=== PATIENT | male | born 1970 | race Caucasian/White ===

== ENCOUNTER 2025-08-13 20:52 | Emergency (ER) | payer OTHER ==
[~2025-08-13] VITALS: Ht 175.3 cm; Wt 72.6 kg
[2025-08-13 20:53] VITALS: BP 155/86
[2025-08-13] MEDS ORDERED: diphenhydrAMINE 50 MG/1 ML VIAL ONE ×2 (21:32→21:35)
[2025-08-13] MEDS ORDERED: ZIPRASIDONE MESYLATE 20 MG VIAL IM ONE (21:33)
[2025-08-13] MEDS ORDERED: LORAZEPAM 2 MG/1 ML VIAL ONE (21:33)
[2025-08-13 21:40] LABS: *BILIRUBIN,URIN NEGATIVE (NEGATIVE); *CLARITY,URINE CLEAR (CLEAR); *COLOR,URINE YELLOW (YELLOW); *KETONES,URINE NEGATIVE (NEGATIVE); *PROTEIN,URINE 3+ (NEGATIVE); *UROBILINOGEN,URINE 1.0 E.U./dl (NORMAL); LEUKOCYTE ESTERASE ,URINE NEGATIVE (NEGATIVE); NITRITE, URINE NEGATIVE (NEGATIVE); UGLUCOSE NEGATIVE (NEGATIVE)
[2025-08-13] MEDS: diphenhydrAMINE 50 MG/1 ML VIAL IV ONE (21:50)
[2025-08-13] MEDS: ZIPRASIDONE MESYLATE 20 MG VIAL IM ONE (21:50)
[2025-08-13] MEDS: LORAZEPAM 2 MG/1 ML VIAL IV ONE (21:50)
[2025-08-13 21:52] LABS: *BLOOD, URINE TRACE (NEGATIVE)
[2025-08-13 21:54] LABS: SQUAMOUS EPITHELIAL CELL,UR FEW /HPF (NONE SEEN)
[2025-08-13 21:55] LABS: *AMPHETAMINE, URINE NEGATIVE (NEGATIVE); *BARBITURATE, URINE NEGATIVE (NEGATIVE); *BENZODIAZEPINE, URINE NEGATIVE (NEGATIVE); *CANNABINOID, URINE NEGATIVE (NEGATIVE); *COCCAINE, URINE NEGATIVE (NEGATIVE); *OPIATE, URINE NEGATIVE (NEGATIVE); *PHENCYCLIDINE SCREEN,URINE NEGATIVE (NEGATIVE); FENTANYL, URINE NEGATIVE (NEGATIVE)
[2025-08-13 22:46] LABS: WHITE BLOOD COUNT (AUTO) 4.0 K/uL (3.6-10.2)
[2025-08-13 22:50] LABS: CREATININE 1.7 mg/dL (0.6-1.3); SODIUM SERUM 142 mmol/L (136-145); UREA NITROGEN, BLOOD 27 mg/dL (7-18)
[2025-08-13 22:52] LABS: PLATELET COUNT (AUTO) 89 K/uL (152-348); RED BLOOD CELL COUNT(AUTO) 4.41 MIL/uL (4.06-5.63); RED CELL DISTRIBUTION WIDTH 15.4 % (12.1-16.2)
[2025-08-13 22:56] LABS: ETHANOL < 3 MG/DL (0-10)
[2025-08-13 23:04] LABS: ASPARTATE AMINOTRANSFERASE 11 U/L (15-37); TOTAL PROTEIN, SERUM 6.6 g/dL (6.4-8.2)
[2025-08-13 23:28] LABS: EOSINOPHILS % (MANUAL) 4 % (0-8); LYMPHOCYTES % (MANUAL) 40 % (20-40); MONOCYTES % (MANUAL) 9 % (2-10); NEUTROPHILS % (MANUAL) 47 % (42-75)
[2025-08-13 23:36] LABS: PLATELET ESTIMATE DECREASED
[2025-08-14] MEDS ORDERED: DIVA250T4 PO (00:36)
[2025-08-14] MEDS ORDERED: LISI-658 PO (00:36)
[2025-08-14] MEDS ORDERED: CITA10TA9 PO (00:36)
[2025-08-14] MEDS ORDERED: RISP2TAB5 PO (00:36)
[2025-08-14 06:49] VITALS: BP 137/76; TEMP 98; O2SAT 100
== END 2025-08-14 06:50 | disposition home or self-care (01) ==
LOC: ER 20:52 → GPS 23:41 → UNDOADMIN 23:41 → UNDODISIN 08-14 06:38 → ER 08-14 06:50
DX: R45.1 Restlessness and agitation (principal); F60.0 Paranoid personality disorder; Z86.69 Personal history of other diseases of the nervous system and sense organs; Z79.899 Other long term (current) drug therapy
CPT/HCPCS: 80053; 81001; 82140; 85007; 85027; 36415; 93005; 99285; 96374; 96375; 96372; 80299; 80320; 80307; 87081; J1200 ×2; J2060; J3486; 70030-TC; G0480

== ENCOUNTER 2025-08-14 14:08 | Inpatient (IN) | payer MEDICAID, OTHER ==
[~2025-08-14] VITALS: Ht 167.6 cm; Wt 66.7 kg
[~2025-08-14 14:08] MED LIST: CITA10TA9 PO; DIVA250T4 PO; LISI-658 PO; RISP2TAB5 PO
[2025-08-14 14:10] VITALS: BP 167/44
[2025-08-14] MEDS: BLOOD SUGAR DIAGNOSTIC 1 EACH STRIP VI ONE (16:45)
[2025-08-14] MEDS: diphenhydrAMINE 50 MG/1 ML VIAL IM ONE (17:16)
[2025-08-14] MEDS: HALOPERIDOL LACTATE 5 MG/1 ML VIAL IM ONE (17:16)
[2025-08-14] MEDS: LORAZEPAM 2 MG/1 ML VIAL IM ONE (17:16)
[2025-08-14 18:04] VITALS: BP 161/91; TEMP 98.4; O2SAT 96
[2025-08-14] MEDS ORDERED: MAG HYDROX/AL HYDROX/SIMETH 30 ML LIQUID UDC PO PRN (18:45)
[2025-08-14] MEDS ORDERED: MAGNESIUM HYDROXIDE 30 ML LIQUID UDC PO PRN (18:45)
[2025-08-14] MEDS: LORAZEPAM 1 MG TABLET PO PRN (19:32)
[2025-08-14 19:34] VITALS: BP 161/81; TEMP 98.4; O2SAT 96
[2025-08-14] MEDS: TEMAZEPAM 15 MG CAPSULE PO PRN (21:24)
[2025-08-15 08:13] LABS: ASPARTATE AMINOTRANSFERASE 13.0 U/L (15-37); CREATININE 1.7 mg/dL (0.6-1.3); SODIUM SERUM 144.0 mmol/L (136-145); TOTAL PROTEIN, SERUM 5.8 g/dL (6.4-8.2); UREA NITROGEN, BLOOD 32.0 mg/dL (7-18)
[2025-08-15 08:25] VITALS: BP 141/81; TEMP 98.4; O2SAT 96
[2025-08-15] MEDS: QUETIAPINE FUMARATE 25 MG TABLET PO SCH (08:44)
[2025-08-15] MEDS: SERTRALINE HCL 50 MG TABLET PO SCH (08:44)
[2025-08-15] MEDS: LISINOPRIL 20 MG TABLET PO SCH (08:44)
[2025-08-15] MEDS: AMLODIPINE 10 MG TABLET PO SCH (13:40)
[2025-08-15 16:46] VITALS: BP 144/70; TEMP 98.4; O2SAT 96
[2025-08-16 08:06] LABS: PLATELET COUNT (AUTO) 80 K/uL (152-348); RED BLOOD CELL COUNT(AUTO) 3.90 MIL/uL (4.06-5.63); RED CELL DISTRIBUTION WIDTH 15.4 % (12.1-16.2); WHITE BLOOD COUNT (AUTO) 4.2 K/uL (3.6-10.2)
[2025-08-16 08:12] VITALS: BP 155/68; TEMP 98.4; O2SAT 96
[2025-08-16 08:22] LABS: ASPARTATE AMINOTRANSFERASE 6 U/L (15-37); CREATINE KINASE, TOTAL 145 U/L (39-308); CREATININE 2.0 mg/dL (0.6-1.3); SODIUM SERUM 141 mmol/L (136-145); TOTAL PROTEIN, SERUM 5.7 g/dL (6.4-8.2); UREA NITROGEN, BLOOD 45 mg/dL (7-18)
[2025-08-16 09:17] LABS: BASOPHILS % (MANUAL) 1 % (0-2); EOSINOPHILS % (MANUAL) 4 % (0-8); LYMPHOCYTES % (MANUAL) 40 % (20-40); MONOCYTES % (MANUAL) 12 % (2-10); NEUTROPHILS % (MANUAL) 43 % (42-75); PLATELET ESTIMATE DECREASED
[2025-08-16] MEDS: HALOPERIDOL 0.5 MG TABLET PO SCH (16:37)
[2025-08-16] MEDS: QUETIAPINE FUMARATE 25 MG TABLET PO SCH (16:38)
[2025-08-17 04:48] LABS: *BILIRUBIN,URIN NEGATIVE (NEGATIVE); *BLOOD, URINE NEGATIVE (NEGATIVE); *CLARITY,URINE CLEAR (CLEAR); *COLOR,URINE YELLOW (YELLOW); *CREATININE,URINE 129.7 mg/dL (30-125); *KETONES,URINE NEGATIVE (NEGATIVE); *SODIUM RNDM,URINE 13.0 mmol/L (40-220); *URINE TOTAL PROTEIN RANDOM 99.0 mg/dL (<150/24HR); *UROBILINOGEN,URINE 0.2 E.U./dl (NORMAL); LEUKOCYTE ESTERASE ,URINE NEGATIVE (NEGATIVE); NITRITE, URINE NEGATIVE (NEGATIVE); UGLUCOSE NEGATIVE (NEGATIVE)
[2025-08-17 04:50] LABS: *PROTEIN,URINE 3+ (NEGATIVE)
[2025-08-17 04:57] LABS: SQUAMOUS EPITHELIAL CELL,UR FEW /HPF (NONE SEEN)
[2025-08-17 08:07] LABS: PTH, INTACT 24 pg/mL (15-65)
[2025-08-17 08:10] VITALS: BP 140/61; TEMP 98.4; O2SAT 96
[2025-08-17 16:15] VITALS: BP 144/69; TEMP 98.4; O2SAT 96
[2025-08-17] MEDS: ACETAMINOPHEN 325 MG TABLET PO PRN (20:37)
[2025-08-18 07:44] VITALS: BP 126/77; TEMP 97.6; O2SAT 98
[2025-08-18 16:23] VITALS: BP 118/76; TEMP 97.6; O2SAT 98
[2025-08-18] MEDS: HALOPERIDOL 1 MG TABLET PO SCH (17:00)
[2025-08-18] MEDS ORDERED: HALOPERIDOL 0.5 MG TABLET PO SCH (17:00)
[2025-08-18 19:45] VITALS: BP 124/74; TEMP 97.8; O2SAT 97
[2025-08-18] MEDS: QUETIAPINE FUMARATE 25 MG TABLET PO SCH (20:39)
[2025-08-19 07:31] LABS: PLATELET COUNT (AUTO) 89 K/uL (152-348); RED BLOOD CELL COUNT(AUTO) 3.98 MIL/uL (4.06-5.63); RED CELL DISTRIBUTION WIDTH 15.5 % (12.1-16.2); WHITE BLOOD COUNT (AUTO) 4.9 K/uL (3.6-10.2)
[2025-08-19 07:51] LABS: ASPARTATE AMINOTRANSFERASE 15.0 U/L (15-37); CREATININE 1.6 mg/dL (0.6-1.3); SODIUM SERUM 142.0 mmol/L (136-145); TOTAL PROTEIN, SERUM 5.9 g/dL (6.4-8.2); UREA NITROGEN, BLOOD 37.0 mg/dL (7-18)
[2025-08-19 08:26] VITALS: BP 108/61; TEMP 98.2; O2SAT 96
[2025-08-19 15:47] VITALS: BP 110/69; TEMP 98.2; O2SAT 96
[2025-08-19] MEDS: LORAZEPAM 2 MG/1 ML VIAL IM ONE (16:00)
[2025-08-19] MEDS: diphenhydrAMINE 50 MG/1 ML VIAL IM ONE (16:00)
[2025-08-19] MEDS: HALOPERIDOL LACTATE 5 MG/1 ML VIAL IM ONE (16:00)
[2025-08-19 20:00] VITALS: BP 107/70; TEMP 98.4; O2SAT 97
[2025-08-20 08:21] VITALS: BP 133/61; TEMP 98.2; O2SAT 96
[2025-08-20] MEDS: FAMOTIDINE 20 MG TABLET PO SCH (09:28)
[2025-08-20] MEDS: AMLODIPINE 5 MG TABLET PO SCH (09:29)
[2025-08-20] MEDS ORDERED: diphenhydrAMINE 50 MG/1 ML VIAL IM ONE (11:30)
[2025-08-20] MEDS ORDERED: HALOPERIDOL LACTATE 5 MG/1 ML VIAL IM ONE (11:30)
[2025-08-20] MEDS ORDERED: LORAZEPAM 2 MG/1 ML VIAL IM ONE (11:30)
[2025-08-20] MEDS: diphenhydrAMINE 50 MG/1 ML VIAL IM ONE (13:48)
[2025-08-20] MEDS: HALOPERIDOL LACTATE 5 MG/1 ML VIAL IM ONE (13:48)
[2025-08-20] MEDS: LORAZEPAM 2 MG/1 ML VIAL IM ONE (13:48)
[2025-08-20 16:12] VITALS: BP 125/57; TEMP 98.2; O2SAT 96
[2025-08-20] MEDS: HALOPERIDOL 1 MG TABLET PO SCH (16:52)
[2025-08-20 19:57] VITALS: BP 130/60; TEMP 98.6; O2SAT 97
[2025-08-20] MEDS: QUETIAPINE FUMARATE 100 MG TABLET PO SCH (20:59)
[2025-08-21 09:20] VITALS: BP 147/74; TEMP 98.5; O2SAT 97
[2025-08-21 14:57] VITALS: BP 163/71; TEMP 97.9; O2SAT 98
[2025-08-21 20:00] VITALS: BP 133/67; TEMP 97.5; O2SAT 98
[2025-08-22 08:12] VITALS: BP 127/68; TEMP 98.5; O2SAT 97
[2025-08-22 16:52] VITALS: BP 126/57; TEMP 98.2; O2SAT 96
[2025-08-22 20:57] VITALS: BP 149/86; TEMP 98.1; O2SAT 97
[2025-08-23 08:32] VITALS: BP 123/79; TEMP 98.5; O2SAT 97
[2025-08-23] MEDS: HALOPERIDOL 1 MG TABLET PO SCH (16:26)
[2025-08-23 16:43] VITALS: BP 126/57; TEMP 98.2; O2SAT 96
[2025-08-23 20:00] VITALS: BP 145/80; TEMP 98; O2SAT 97
[2025-08-24 08:10] VITALS: BP 123/79; TEMP 98.5; O2SAT 97
[2025-08-24 16:33] VITALS: BP 127/61; TEMP 98.2; O2SAT 96
[2025-08-24] MEDS ORDERED: QUETIAPINE FUMARATE 100 MG TABLET PO SCH (21:00)
== END 2025-08-24 17:00 | DRG 750 ==
LOC: ER 14:11 → GPS 16:21
PROVIDERS: ADMIT Psychiatry & Neurology Psychiatry; ATTEND Nurse Practitioner Acute Care
DX: F29 Unspecified psychosis not due to a substance or known physiological condition (principal); D69.6 Thrombocytopenia, unspecified; F20.0 Paranoid schizophrenia; N17.9 Acute kidney failure, unspecified; N40.0 Benign prostatic hyperplasia without lower urinary tract symptoms; I11.9 Hypertensive heart disease without heart failure; Z79.899 Other long term (current) drug therapy; M89.8X9 Other specified disorders of bone, unspecified site; E78.5 Hyperlipidemia, unspecified; Z86.39 Personal history of other endocrine, nutritional and metabolic disease; R80.9 Proteinuria, unspecified
CPT/HCPCS: 36415; 70030-TC; 83735; 83970; 84100; 84155; 84165; 84300; 85025; 87086; J1200; J1630; J2060